=== PATIENT | male | born 1995 ===

== ENCOUNTER 2022-06-17 10:27 | Emergency (ER) | payer OTHER ==
[2022-06-17] MEDS ORDERED: Acetaminophen 500 MG Tab PO ONE (11:09)
== END 2022-06-17 13:56 | disposition home or self-care (01) ==
LOC: JP.ED 10:27
DX: S92.024A Nondisplaced fracture of anterior process of right calcaneus, initial encounter for closed fracture (principal); S92.214A Nondisplaced fracture of cuboid bone of right foot, initial encounter for closed fracture; W17.89XA Other fall from one level to another, initial encounter
CPT/HCPCS: 73610; 73630; 73700; 99284; A9270